=== PATIENT | male | born 1990 | race Caucasian/White ===

== ENCOUNTER 2023-06-13 13:34 | Emergency (ER) | payer OTHER ==
[~2023-06-13] VITALS: Ht 182.9 cm; Wt 68.0 kg
[2023-06-13 13:36] VITALS: BP 159/98; PULSE 84; RESP 20; O2SAT 100
[2023-06-13] MEDS ORDERED: ONDANSETRON 4 MG/2 ML VIAL IVP ONE (14:00)
[2023-06-13] MEDS ORDERED: MORPHINE SULFATE 4 MG/ML SYR IVP ONE ×2 (14:00→14:40)
[2023-06-13] MEDS ORDERED: NACL 0.9% 1,000 ML IV ONE ×2 (14:00→14:40)
[2023-06-13] MEDS ORDERED: ONDANSETRON 4 MG/2 ML VIAL ONE (14:03)
[2023-06-13] MEDS ORDERED: MORPHINE SULFATE 4 MG/ML SYR ONE (14:03)
[2023-06-13 14:05] LABS: BASOPHILS # (AUTO) 0.1 K/uL (0.00-0.22); BASOPHILS % (AUTO) 0.3 % (0.0-2.0); EOSINOPHILS # (AUTO) 0.1 K/uL (0-0.4); EOSINOPHILS % (AUTO) 0.3 % (0.0-4.0); HEMOGLOBIN 14.7 g/dL (12.0-18.0); LYMPHOCYTES # (AUTO) 1.7 K/uL (2.0-11.5); LYMPHOCYTES % (AUTO) 6.6 % (20.5-51.1); MEAN CORPUSCULAR HEMOGLOBIN 32 pg (27-31); MEAN CORPUSCULAR HGB CONC 34 g/dL (33-37); MONOCYTES # (AUTO) 1.9 K/uL (0.8-1.0); MONOCYTES % (AUTO) 7.4 % (1.7-9.3); NEUTROPHILS # (AUTO) 22.1 K/uL (1.8-7.7); NEUTROPHILS % (AUTO) 85.4 % (42.2-75.2); PLATELET COUNT (AUTO) 346 K/uL (140-450); RED BLOOD CELL COUNT(AUTO) 4.62 MIL/uL (4.20-6.10); RED CELL DISTRIBUTION WIDTH 13.7 % (11.6-13.7)
[2023-06-13 14:32] LABS: WHITE BLOOD COUNT (AUTO) 25.9 K/uL (4.8-10.8)
[2023-06-13] MEDS ORDERED: PANTOPRAZOLE 40 MG INJ VIAL IVP ONE (14:40)
[2023-06-13 14:49] LABS: ALBUMIN 4.7 g/dL (3.4-5.0); ANION GAP 19.5 (8-16); CARBON DIOXIDE 24.1 mmol/L (21-32); POTASSIUM 3.6 mmol/L (3.5-5.1); TOTAL BILIRUBIN 0.5 mg/dL (0.0-1.0); TOTAL PROTEIN, SERUM 8.4 g/dL (6.4-8.2)
[2023-06-13 15:06] LABS: CALCIUM 9.9 mg/dL (8.5-10.1)
[2023-06-13 15:36] LABS: APPEARANCE,URINE CLEAR (CLEAR); BILIRUBIN,URINE NEGATIVE (NEGATIVE); BLOOD, URINE NEGATIVE (NEGATIVE); COLOR,URINE YELLOW (YELLOW); LEUKOCYTE ESTERASE ,URINE TRACE (NEGATIVE); NITRITE, URINE NEGATIVE (NEGATIVE); PH,URINE >=9.0 (5.0-9.0); PROTEIN,URINE 2+ (NEGATIVE); UGLUCOSE NEGATIVE (NEGATIVE); UROBILINOGEN,URINE 0.2 EU/dL (0.2 - 1)
[2023-06-13 15:43] LABS: BACTERIA,URINE 0-2 /HPF (None Seen); MUCUS,URINE None Seen /LPF (None Seen); SQUAMOUS EPITHELIAL CELL,UR 4-10 (MOD) /LPF (0-3 (FEW))
[2023-06-13] MEDS ORDERED: KETOROLAC 30 MG/ML VIAL IVP ONE (16:35)
[2023-06-13] MEDS ORDERED: METOCLOPRAMIDE 10 MG/2 ML INJ VIAL IVP ONE (17:00)
[2023-06-13] MEDS ORDERED: ACET-8905 PO ×2 (17:33→18:01)
[2023-06-13] MEDS ORDERED: ONDA-188 SL ×2 (17:33→18:01)
[2023-06-13 18:08] VITALS: BP 147/86; PULSE 67; RESP 14; TEMP 97.4; O2SAT 97
== END 2023-06-13 18:06 | disposition home or self-care (01) ==
LOC: MED 13:34
DX: R10.32 Left lower quadrant pain (principal); R19.7 Diarrhea, unspecified; R11.10 Vomiting, unspecified; F12.90 Cannabis use, unspecified, uncomplicated; Z86.69 Personal history of other diseases of the nervous system and sense organs; Z98.890 Other specified postprocedural states; Z87.891 Personal history of nicotine dependence; Z79.899 Other long term (current) drug therapy
CPT/HCPCS: 36415; 71045; 74177; 80053; 81001; 83605; 83690; 85025; 87040; 87086; 96361; 96374; 96375; 96376; 99285; C9113; J1885; J2270; J2405; J2765; J7030; Q9967

== ENCOUNTER 2023-09-21 10:12 | Inpatient (IN) | payer MEDICAID, OTHER ==
[~2023-09-21] VITALS: Ht 182.9 cm; Wt 79.4 kg
[~2023-09-21 10:12] MED LIST: ACET-8905 PO; ONDA-188 SL
[2023-09-21] MEDS ORDERED: LORazepam 2 MG/ML VIAL IVP ONE (10:30)
[2023-09-21] MEDS ORDERED: ALBUTEROL SULFATE/IPRATROPIU 3 ML SOL IH ONE (10:30)
[2023-09-21] MEDS ORDERED: methylPREDNISolone SS 125 MG/2 ML VIAL IVP ONE (10:30)
[2023-09-21 10:35] VITALS: BP 124/78; PULSE 110; RESP 30; TEMP 98.2; O2SAT 94
[2023-09-21 10:38] VITALS: PULSE 105; RESP 22; O2SAT 94; O2SAT 95
[2023-09-21 11:04] LABS: BASOPHILS % (AUTO) 0.1 % (0.0-2.0); EOSINOPHILS % (AUTO) 0.1 % (0.0-4.0); HEMATOCRIT 37.1 % (36-52); HEMOGLOBIN 13.1 g/dL (12.0-18.0); LYMPHOCYTES # (AUTO) 1.6 K/uL (2.0-11.5); LYMPHOCYTES % (AUTO) 18.3 % (20.5-51.1); MEAN CORPUSCULAR HEMOGLOBIN 32 pg (27-31); MEAN CORPUSCULAR HGB CONC 35 g/dL (33-37); MEAN CORPUSCULAR VOLUME 90.6 fL (80-94); MONOCYTES # (AUTO) 0.6 K/uL (0.8-1.0); NEUTROPHILS # (AUTO) 6.4 K/uL (1.8-7.7); NEUTROPHILS % (AUTO) 74.5 % (42.2-75.2); PLATELET COUNT (AUTO) 399 K/uL (140-450); RED CELL DISTRIBUTION WIDTH 13.3 % (11.6-13.7); WHITE BLOOD COUNT (AUTO) 8.6 K/uL (4.8-10.8)
[2023-09-21 11:17] LABS: FLU A ANTIGEN negative (NEGATIVE); FLU B ANTIGEN NEGATIVE (NEGATIVE)
[2023-09-21] MEDS ORDERED: NACL 0.9% 1,000 ML IV ONE (11:20)
[2023-09-21] MEDS ORDERED: PIPERACILLIN/TAZOBACTAM 3.375 GM in DEXTROSE 5% 50 ML IV ONE (11:25)
[2023-09-21] MEDS ORDERED: VANCOMYCIN 1,000 MG in DEXTROSE 5% 250 ML IV ONE (11:25)
[2023-09-21 11:27] LABS: ALANINE AMINOTRANSFERASE 37 U/L (12-78); ALBUMIN 2.7 g/dL (3.4-5.0); ALKALINE PHOSPHATASE 102 U/L (50-136); ANION GAP 14.8 (8-16); ASPARTATE AMINOTRANSFERASE 38 U/L (15-37); CALCIUM 8.4 mg/dL (8.5-10.1); CARBON DIOXIDE 25.8 mmol/L (21-32); CHLORIDE 97 mmol/L (98-107); CREATININE 0.9 mg/dL (0.6-1.3); GFR ARICAN-AMERICAN 126 mL/min (>90); GFR NON ARICAN-AMERICAN 104 mL/min (>90); GLUCOSE 135 mg/dL (74-106); SODIUM SERUM 135 mmol/L (136-145); TOTAL BILIRUBIN 0.4 mg/dL (0.0-1.0); TOTAL PROTEIN, SERUM 8.1 g/dL (6.4-8.2); UREA NITROGEN, BLOOD 2 mg/dL (7-18)
[2023-09-21] MEDS ORDERED: VANCOMYCIN 1,000 MG VIAL ONE ×2 (11:30→23:05)
[2023-09-21] MEDS ORDERED: PIPERACILLIN/TAZOBACTAM 3.375 GM VIAL IV ONE (11:30)
[2023-09-21 11:37] LABS: APPEARANCE,URINE CLEAR (CLEAR); BILIRUBIN,URINE NEGATIVE (NEGATIVE); BLOOD, URINE TRACE-I (NEGATIVE); COLOR,URINE YELLOW (YELLOW); LEUKOCYTE ESTERASE ,URINE NEGATIVE (NEGATIVE); NITRITE, URINE NEGATIVE (NEGATIVE); PROTEIN,URINE NEGATIVE (NEGATIVE); UGLUCOSE NEGATIVE (NEGATIVE); UROBILINOGEN,URINE 0.2 EU/dL (0.2 - 1)
[2023-09-21 11:45] LABS: POTASSIUM 2.6 mmol/L (3.5-5.1)
[2023-09-21 11:50] LABS: AMPHETAMINE, URINE NEGATIVE ng/ml (NEG <=1000); BARBITURATE, URINE NEGATIVE ng/ml (NEG <=200); BENZODIAZEPINE, URINE NEGATIVE ng/mL (NEG <=200); CANNABINOID, URINE POSITIVE ng/mL (NEG <=50); COCAINE, URINE NEGATIVE ng/mL (NEG <=300); OPIATE, URINE NEGATIVE ng/mL (NEG <=2000); PHENCYCLIDINE SCREEN,URINE NEGATIVE ng/mL (NEG <=25)
[2023-09-21] MEDS ORDERED: KCL 20 MEQ IN 100 mL PREMIX 200 ML IV ONE (11:55)
[2023-09-21] MEDS ORDERED: POTASSIUM CHLORIDE 10 MEQ TABER PO ONE (11:55)
[2023-09-21 12:43] LABS: LACTIC ACID 1.1 mmol/L (0.4-2.0)
[2023-09-21] MEDS ORDERED: VANCOMYCIN PER PHARMACY MC PRN (13:00)
[2023-09-21] MEDS ORDERED: ACETAMINOPHEN 325 MG TAB PO PRN (13:00)
[2023-09-21 13:11] LABS: BLOOD GAS HCO3 26.8 mmol/L (22-26); BLOOD GAS PH 7.455 (7.35-7.45); BLOOD GAS PO2 66.5 mmHg (75-100)
[2023-09-21 13:12] LABS: BLOOD GAS BASE EXCESS 2.8 mmol/L (-2.0-2.0)
[2023-09-21 13:13] LABS: BLOOD GAS O2 SAT% 94.3 % (92.0-98.5)
[2023-09-21] MEDS ORDERED: CEFEPIME 1,000 MG VIAL ONE ×2 (13:23→21:53)
[2023-09-21] MEDS: CEFEPIME 1,000 MG in DEXTROSE 5% 50 ML IV SCH ×2 (13:29→22:04)
[2023-09-21] MEDS: HYDROcodone/APAP 5/325 MG 1 TAB TAB PO PRN (13:33)
[2023-09-21] MEDS ORDERED: MAG SULF 2000 MG/WATER PREMIX 50 ML IV PRN (13:50)
[2023-09-21] MEDS ORDERED: ZOLPIDEM 10 MG TAB PO PRN (13:50)
[2023-09-21] MEDS ORDERED: POTASSIUM CHLORIDE 10 MEQ TABER PO PRN (13:50)
[2023-09-21] MEDS: NACL 0.9% 1,000 ML IV SCH ×2 (14:00→23:00)
[2023-09-21] MEDS ORDERED: IBUP-1842 PO (14:43)
[2023-09-21] MEDS ORDERED: CEPH-588 PO (14:43)
[2023-09-21] MEDS ORDERED: MEDR10TA PO (14:43)
[2023-09-21] MEDS ORDERED: ALBUTEROL SULFATE/IPRATROPIU 3 ML SOL IH PRN (17:10)
[2023-09-21] MEDS: ALBUTEROL SULFATE/IPRATROPIU 3 ML SOL IH SCH ×2 (20:25→23:44)
[2023-09-21 20:26] VITALS: PULSE 94; RESP 20; O2SAT 94
[2023-09-21 21:00] VITALS: BP 133/82; PULSE 93; RESP 18; TEMP 98.5; O2SAT 93
[2023-09-21] MEDS: methylPREDNISolone SS 40 MG/ML VIAL IVP SCH (22:04)
[2023-09-21] MEDS: VANCOMYCIN 1.25GM PREMIX 250 ML IV SCH (23:15)
[2023-09-21] MEDS ORDERED: VANCOMYCIN 500 MG VIAL ONE (23:21)
[2023-09-21 23:44] VITALS: PULSE 89; RESP 18; O2SAT 95
[2023-09-22] VITALS (17 sets, daily range): BP systolic 118–146; BP diastolic 55–83; PULSE 64–109; RESP 16–22; TEMP 96.9–99.1; O2SAT 93–98
[2023-09-22] MEDS ORDERED: ATA25 PO (02:25)
[2023-09-22] MEDS ORDERED: PRED20TA5 PO (02:29)
[2023-09-22] MEDS ORDERED: ARIP5TAB8 PO (02:29)
[2023-09-22] MEDS ORDERED: ESCI5TAB PO (02:29)
[2023-09-22] MEDS ORDERED: ALBU1SPR IH (02:29)
[2023-09-22] MEDS ORDERED: BUS5 PO (02:29)
[2023-09-22] MEDS ORDERED: FAMO-92 PO (02:29)
[2023-09-22] MEDS ORDERED: LAM200 PO (02:29)
[2023-09-22] MEDS: ALBUTEROL SULFATE/IPRATROPIU 3 ML SOL IH SCH ×6 (04:10→23:48)
[2023-09-22] MEDS: methylPREDNISolone SS 40 MG/ML VIAL IVP SCH ×3 (04:49→20:38)
[2023-09-22] MEDS: MORPHINE SULFATE 2 MG/ML SYR IVP PRN ×2 (04:52→21:28)
[2023-09-22] MEDS ORDERED: VANCOMYCIN 500 MG VIAL ONE (05:43)
[2023-09-22] MEDS ORDERED: VANCOMYCIN 1,000 MG VIAL ONE (05:43)
[2023-09-22] MEDS: VANCOMYCIN 1.25GM PREMIX 250 ML IV SCH ×3 (05:48→21:27)
[2023-09-22] MEDS: NACL 0.9% 1,000 ML IV SCH ×3 (05:59→21:26)
[2023-09-22 06:57] LABS: ALBUMIN 2.2 g/dL (3.4-5.0); ANION GAP 10.9 (8-16); CARBON DIOXIDE 25.6 mmol/L (21-32); CREATININE 0.6 mg/dL (0.6-1.3); POTASSIUM 3.5 mmol/L (3.5-5.1); TOTAL BILIRUBIN 0.2 mg/dL (0.0-1.0); TOTAL PROTEIN, SERUM 6.9 g/dL (6.4-8.2)
[2023-09-22 08:02] LABS: BASOPHILS % (AUTO) 0.1 % (0.0-2.0); HEMATOCRIT 32.9 % (36-52); HEMOGLOBIN 11.5 g/dL (12.0-18.0); LYMPHOCYTES # (AUTO) 1.1 K/uL (2.0-11.5); LYMPHOCYTES % (AUTO) 13.5 % (20.5-51.1); MEAN CORPUSCULAR HEMOGLOBIN 32 pg (27-31); MEAN CORPUSCULAR HGB CONC 35 g/dL (33-37); MEAN CORPUSCULAR VOLUME 91.1 fL (80-94); MONOCYTES # (AUTO) 0.7 K/uL (0.8-1.0); MONOCYTES % (AUTO) 8.9 % (1.7-9.3); NEUTROPHILS # (AUTO) 6.4 K/uL (1.8-7.7); NEUTROPHILS % (AUTO) 77.5 % (42.2-75.2); PLATELET COUNT (AUTO) 401 K/uL (140-450); RED BLOOD CELL COUNT(AUTO) 3.61 MIL/uL (4.20-6.10); RED CELL DISTRIBUTION WIDTH 13.3 % (11.6-13.7); WHITE BLOOD COUNT (AUTO) 8.2 K/uL (4.8-10.8)
[2023-09-22] MEDS: ENOXAPARIN 40 MG/0.4 ML SYR SUBQ SCH (08:28)
[2023-09-22] MEDS: CEFEPIME 1,000 MG in DEXTROSE 5% 50 ML IV SCH ×2 (08:29→20:36)
[2023-09-22] MEDS: PANTOPRAZOLE 40 MG INJ VIAL IVP SCH (08:29)
[2023-09-22] MEDS: HYDROcodone/APAP 5/325 MG 1 TAB TAB PO PRN (08:29)
[2023-09-22] MEDS: busPIRone 5 MG TAB PO SCH (20:38)
[2023-09-22] MEDS: ARIPiprazole 10 MG TAB PO SCH (20:53)
[2023-09-22] MEDS: BENZONATATE 100 MG CAPLF PO SCH (21:26)
[2023-09-23] VITALS (13 sets, daily range): BP systolic 117–137; BP diastolic 62–89; PULSE 68–105; RESP 14–22; TEMP 97.3–98.5; O2SAT 92–98
[2023-09-23] MEDS: ALBUTEROL SULFATE/IPRATROPIU 3 ML SOL IH SCH ×5 (04:34→23:47)
[2023-09-23] MEDS: methylPREDNISolone SS 40 MG/ML VIAL IVP SCH ×3 (05:29→20:25)
[2023-09-23] MEDS: BENZONATATE 100 MG CAPLF PO SCH ×3 (05:29→20:26)
[2023-09-23] MEDS: VANCOMYCIN 1.25GM PREMIX 250 ML IV SCH ×3 (05:31→20:24)
[2023-09-23 06:40] LABS: BASOPHILS % (AUTO) 0.1 % (0.0-2.0); HEMATOCRIT 32.9 % (36-52); HEMOGLOBIN 10.9 g/dL (12.0-18.0); LYMPHOCYTES # (AUTO) 1.7 K/uL (2.0-11.5); LYMPHOCYTES % (AUTO) 12.1 % (20.5-51.1); MEAN CORPUSCULAR HEMOGLOBIN 31 pg (27-31); MEAN CORPUSCULAR HGB CONC 33 g/dL (33-37); MEAN CORPUSCULAR VOLUME 93.3 fL (80-94); MONOCYTES % (AUTO) 14.6 % (1.7-9.3); NEUTROPHILS # (AUTO) 10.1 K/uL (1.8-7.7); NEUTROPHILS % (AUTO) 73.2 % (42.2-75.2); PLATELET COUNT (AUTO) 468 K/uL (140-450); RED BLOOD CELL COUNT(AUTO) 3.52 MIL/uL (4.20-6.10); RED CELL DISTRIBUTION WIDTH 13.7 % (11.6-13.7); WHITE BLOOD COUNT (AUTO) 13.8 K/uL (4.8-10.8)
[2023-09-23 06:56] LABS: ALBUMIN 2.3 g/dL (3.4-5.0); ANION GAP 10.2 (8-16); CALCIUM 8.4 mg/dL (8.5-10.1); CARBON DIOXIDE 27.4 mmol/L (21-32); CREATININE 0.8 mg/dL (0.6-1.3); POTASSIUM 3.6 mmol/L (3.5-5.1); TOTAL BILIRUBIN 0.1 mg/dL (0.0-1.0); TOTAL PROTEIN, SERUM 6.8 g/dL (6.4-8.2)
[2023-09-23] MEDS: PANTOPRAZOLE 40 MG INJ VIAL IVP SCH (08:28)
[2023-09-23] MEDS: CEFEPIME 1,000 MG in DEXTROSE 5% 50 ML IV SCH ×2 (08:28→20:24)
[2023-09-23] MEDS: ARIPiprazole 10 MG TAB PO SCH ×2 (08:29→20:26)
[2023-09-23] MEDS: NICOTINE TRANSD SYS 14 MG/24 HR PATCH TD SCH (08:29)
[2023-09-23] MEDS: ENOXAPARIN 40 MG/0.4 ML SYR SUBQ SCH (08:30)
[2023-09-23] MEDS: busPIRone 5 MG TAB PO SCH ×2 (08:57→20:27)
[2023-09-23] MEDS ORDERED: ESCITALOPRAM 20 MG TAB PO SCH (09:00)
[2023-09-23] MEDS ORDERED: ENOXAPARIN 40 MG/0.4 ML SYR SUBQ SCH (09:00)
[2023-09-23] MEDS: NACL 0.9% 1,000 ML IV SCH (12:23)
[2023-09-23] MEDS: MORPHINE SULFATE 2 MG/ML SYR IVP PRN (20:32)
[2023-09-23] MEDS: HYDROcodone/APAP 5/325 MG 1 TAB TAB PO PRN (22:44)
[2023-09-24] MEDS: NACL 0.9% 1,000 ML IV SCH ×2 (00:08→12:15)
[2023-09-24 03:15] VITALS: PULSE 72; RESP 18; O2SAT 95
[2023-09-24] MEDS: ALBUTEROL SULFATE/IPRATROPIU 3 ML SOL IH SCH ×3 (03:45→11:28)
[2023-09-24 04:00] VITALS: BP 127/78; PULSE 76; RESP 20; TEMP 97.6; O2SAT 97
[2023-09-24] MEDS: methylPREDNISolone SS 40 MG/ML VIAL IVP SCH ×2 (05:08→13:18)
[2023-09-24] MEDS: BENZONATATE 100 MG CAPLF PO SCH ×2 (05:08→13:18)
[2023-09-24] MEDS: VANCOMYCIN 1.25GM PREMIX 250 ML IV SCH ×2 (05:08→13:19)
[2023-09-24 06:45] LABS: HEMATOCRIT 33.3 % (36-52); HEMOGLOBIN 11.4 g/dL (12.0-18.0); MEAN CORPUSCULAR HEMOGLOBIN 32 pg (27-31); MEAN CORPUSCULAR HGB CONC 34 g/dL (33-37); MEAN CORPUSCULAR VOLUME 92.6 fL (80-94); PLATELET COUNT (AUTO) 509 K/uL (140-450); RED BLOOD CELL COUNT(AUTO) 3.59 MIL/uL (4.20-6.10); RED CELL DISTRIBUTION WIDTH 13.4 % (11.6-13.7); WHITE BLOOD COUNT (AUTO) 15.6 K/uL (4.8-10.8)
[2023-09-24 06:55] LABS: ALBUMIN 2.4 g/dL (3.4-5.0); ANION GAP 12.2 (8-16); CALCIUM 8.2 mg/dL (8.5-10.1); CARBON DIOXIDE 28.5 mmol/L (21-32); CREATININE 0.7 mg/dL (0.6-1.3); POTASSIUM 3.7 mmol/L (3.5-5.1); TOTAL BILIRUBIN 0.1 mg/dL (0.0-1.0); TOTAL PROTEIN, SERUM 6.9 g/dL (6.4-8.2)
[2023-09-24 07:16] VITALS: PULSE 73; RESP 18; O2SAT 99
[2023-09-24 07:22] VITALS: O2SAT 97
[2023-09-24 08:00] VITALS: PULSE 79; RESP 18; RESP 22; O2SAT 93
[2023-09-24 08:41] LABS: LYMPHOCYTES % (MANUAL) 11 % (20-46); MONOCYTES % (MANUAL) 11 % (5-12)
[2023-09-24] MEDS ORDERED: ESCITALOPRAM 20 MG TAB PO SCH (09:00)
[2023-09-24] MEDS: busPIRone 5 MG TAB PO SCH (10:00)
[2023-09-24] MEDS: ARIPiprazole 10 MG TAB PO SCH (10:01)
[2023-09-24] MEDS: PANTOPRAZOLE 40 MG INJ VIAL IVP SCH (10:08)
[2023-09-24] MEDS: ENOXAPARIN 40 MG/0.4 ML SYR SUBQ SCH (10:10)
[2023-09-24] MEDS: MORPHINE SULFATE 2 MG/ML SYR IVP PRN (10:21)
[2023-09-24] MEDS: NICOTINE TRANSD SYS 14 MG/24 HR PATCH TD SCH (10:25)
[2023-09-24] MEDS: CEFEPIME 1,000 MG in DEXTROSE 5% 50 ML IV SCH (10:36)
[2023-09-24 11:28] VITALS: PULSE 95; RESP 18; O2SAT 94
[2023-09-24] MEDS ORDERED: LEXAPRO 5 MG PO SCH (13:08)
[2023-09-24] MEDS: HYDROcodone/APAP 5/325 MG 1 TAB TAB PO PRN (13:28)
[2023-09-24] MEDS ORDERED: METH4TAB1 PO (16:51)
[2023-09-24] MEDS ORDERED: LEVO750T75 PO (16:51)
[2023-09-25] MEDS ORDERED: predniSONE 20 MG TAB PO SCH (09:00)
== END 2023-09-24 18:33 | disposition home or self-care (01) | DRG 720 ==
LOC: MED 10:12 → MMU 13:05 → MTU 19:06
PROVIDERS: ADMIT Family Medicine; ATTEND Family Medicine
DX: A41.9 Sepsis, unspecified organism (principal); J96.01 Acute respiratory failure with hypoxia; E43 Unspecified severe protein-calorie malnutrition; J11.00 Influenza due to unidentified influenza virus with unspecified type of pneumonia; J15.9 Unspecified bacterial pneumonia; E87.6 Hypokalemia; R74.01 Elevation of levels of liver transaminase levels; R73.9 Hyperglycemia, unspecified; F41.9 Anxiety disorder, unspecified; J42 Unspecified chronic bronchitis; Z68.23 Body mass index [BMI] 23.0-23.9, adult; G40.909 Epilepsy, unspecified, not intractable, without status epilepticus; Z20.822 Contact with and (suspected) exposure to COVID-19
CPT/HCPCS: 36415; 36600; 71045; 71046; 71275; 80053; 80202; 80299; 80305; 81003; 82803; 83605; 83880; 84484; 85025; 85379; 87040; 87081; 94640; 96365; 96367; 96368; 96375; 99291; C9113; J0692; J1650; J2060; J2270; J2543; J2920; J2930; J3370; J3372; J3480; J7060; Q0092; Q9967